=== PATIENT | male | born 1960 | race Two or more races ===

== ENCOUNTER 2024-05-10 19:45 | Emergency (ER) | payer MEDICAID, OTHER ==
[~2024-05-10] VITALS: Ht 182.9 cm; Wt 54.6 kg
[2024-05-10] MEDS: ALBUTEROL SULF 2.5 MG/0.5ML(0.5%) NEB SOLN NEB ONE (20:12)
[2024-05-10 20:31] LABS: Basophils # (auto) 0 10 ^3/uL (0-0.2); Basophils % (auto) 0.4 % (0.0-2.0); Eosinophils # (auto) 0.1 10 ^3/uL (0-0.8); Eosinophils % (auto) 0.9 % (0.0-7.0); Hemoglobin 13.2 g/dL (13.5-17.5); Lymphocytes # (auto) 2.1 10 ^3/uL (0.4-5.4); Lymphocytes % (auto) 22.3 % (10.0-50.0); Mean Corpuscular Hemoglobin 27.7 pg (28.0-32.0); Mean Corpuscular Hgb Conc. 32.3 g/dL (32.0-36.0); Mean Corpuscular Volume 85.7 fL (80.0-100.0); Monocytes # (auto) 0.9 10 ^3/uL (0-1.3); Neutrophils # (auto) 6.2 10 ^3/uL (1.6-8.6); Neutrophils % (auto) 66.4 % (37.0-80.0); Nucleated Red Blood Cells % 0.1 %; Red Blood Cells 4.79 10^6/uL (4.5-5.90); White Blood Cell 9.3 10^3/uL (4.4-10.8)
[2024-05-10 20:55] LABS: Alanine Aminotransferase 68 U/L (7-40); Albumin 3.2 g/dL (3.2-4.8); Alkaline Phosphatase 758 U/L (46-116); Anion Gap 7 (5-15); Aspartate Aminotransferase 367 U/L (13-40); BUN/Creatinine Ratio 21.9 (10.0-20.0); Bilirubin, Total 4.2 mg/dL (0.2-1.0); Blood Urea Nitrogen 32 mg/dL (9-23); Calcium 9.4 mg/dL (8.7-10.4); Carbon Dioxide 19 mmol/L (20-30); Chloride 101 mmol/L (98-107); Glucose 85 mg/dL (74-106); Potassium 5.3 mmol/L (3.5-5.1); Red Cell Distribution Width 24.5 % (11.8-14.3); Sodium 127 mmol/L (136-145); Total Protein 6.8 g/dL (5.7-8.2)
[2024-05-11 01:38] VITALS: BP 96/80; PULSE 100; RESP 18; O2SAT 94
[2024-05-11] MEDS: SODIUM ZIRCONIUM CYCL 10 GM PAK PO ONE (01:45)
[2024-05-11] MEDS: ALBUMIN 25% 50 ML IV ONE (01:45)
== END 2024-05-11 01:52 | disposition home or self-care (01) ==
LOC: EDBD 19:45 → ER 19:45
DX: K74.60 Unspecified cirrhosis of liver (principal); J98.8 Other specified respiratory disorders; Z85.9 Personal history of malignant neoplasm, unspecified
CPT/HCPCS: 36415; 71045; 80053; 85025; 93005; 94640